=== PATIENT | female | born 1960 ===

== ENCOUNTER 2017-03-31 08:02 | Emergency (ER) | payer OTHER ==
[2017-03-31 08:02] VITALS: BMI 26.2
[2017-03-31 08:23] VITALS: TEMP 98.7
[2017-03-31] MEDS ORDERED: Naproxen 550 mg Tab PO STA (08:36)
--- NOTE | 2017-03-31 08:37 | ED PDOC ---
Arrival/HPI - General Chief Complaint: Lower Extremity Problem/Injury Time Seen by Provider: 03/31/17 08:30 Historian: Patient - History of Present Illness Narrative History of Present Illness (Text): 03/31/17 08:36 A 56 year old female, who denies any past medical history, presents to the emergency department complaining of right foot pain since this morning. She denies any recent trauma or injuries. Patient denies any fever, chills, nausea, vomiting, abdominal pain, chest pain, shortness of breath or any other complaints. PMD: Dr. Cruz Patterson Time/Duration: Prior to Arrival Symptom Course: Unchanged Quality: Other Context: Home Past Medical History - Provider Review Nursing Documentation Reviewed: Yes - Tetanus Immunization Tetanus Immunization: Unknown - Cardiac Hx Cardiac Disorders: No Hx Pacemaker: No - Neurological Hx Paralysis: No - Hematological/Oncological Hx Blood Transfusions: No - Musculoskeletal/Rheumatological Hx Musculoskeletal Disorders: No - Psychiatric Hx Emotional Abuse: No Hx Physical Abuse: No Hx Substance Use: No - Surgical History Hx Section: Yes Other/Comment: foot surgery - Anesthesia Hx Anesthesia Reactions: No Hx Malignant Hyperthermia: No - Suicidal Assessment Feels Threatened In Home Enviroment: No Family/Social History - Physician Review Nursing Documentation Reviewed: Yes Family/Social History: No Known Family HX Smoking Status: Never Smoked Hx Alcohol Use: No Hx Substance Use: No Allergies/Home Meds Allergies/Adverse Reactions: Allergies No Known Allergies Allergy (Verified 03/31/17 08:23) Review of Systems - Physician Review All systems were reviewed & negative as marked: Yes - Review of Systems Constitutional: absent: Fevers, Night Sweats Respiratory: absent: SOB Cardiovascular: absent: Chest Pain Gastrointestinal: absent: Abdominal Pain, Nausea, Vomiting Musculoskeletal: Other (right foot pain) Physical Exam Vital Signs Reviewed: Yes Vital Signs Temp Pulse Resp BP Pulse Ox 03/31/17 11:10 78 18 147/77 100 03/31/17 08:21 98.7 F 80 16 164/104 H 98 Temperature: Afebrile Blood Pressure: Hypertensive Pulse: Regular Respiratory Rate: Normal Appearance: Positive for: Well-Appearing, Non-Toxic, Comfortable Pain Distress: None Mental Status: Positive for: Alert and Oriented X 3 - Systems Exam Head: Present: Atraumatic, Normocephalic Pupils: Present: PERRL Extroacular Muscles: Present: EOMI Conjunctiva: Present: Normal Lower Extremity: Present: NORMAL PULSES, Normal ROM, Tenderness (Mild right 1st digit tenderness), Neurovascularly Intact. No: Edema, CALF TENDERNESS, Swelling , Erythema, Deformity, Temperature Abnormalties Neurological: Present: GCS=15, CN II-XII Intact, Speech Normal Skin: Present: Warm, Dry, Normal Color. No: Rashes Psychiatric: Present: Alert, Oriented x 3, Normal Insight, Normal Concentration Medical Decision Making ED Course and Treatment: 03/31/17 08:36 Impression: A 56 year old female with right foot pain. Plan: -- Right foot xray -- Naproxen -- Reassess and disposition Progress Notes: Report Date : 03/31/2017 09:35:04 PROCEDURE: Right Foot Radiographs. Dictator : Juan Carlos Souza MD IMPRESSION: Small plantar calcaneal spur. Otherwise unremarkable. 03/31/17 09:40 I have discussed the results and plan with the patient, who expresses understanding. Patient in agreement with plan to be discharged home. Patient is stable for discharge. Patient was instructed to follow up with physician or return if symptoms worsen or new concerning symptoms arise. 03/31/17 10:17 Patient evaluated by corporate real estate specialist Dr. Shaffer and team, who cleared patient for discharge. 03/31/17 11:42 - Lab Interpretations I have reviewed the lab results: Yes - RAD Interpretation Radiology Orders: 03/31/17 08:36 FOOT RIGHT 3 VIEWS ROUTINE [RAD] Stat - Medication Orders Current Medication Orders: Discontinued Medications Naproxen (Anaprox Ds) 550 mg PO STAT STA Stop: 03/31/17 08:37 Last Admin: 03/31/17 08:51 Dose: 550 mg - Scribe Statement The provider has reviewed the documentation as recorded by the Apoorvaibjun Youngblood Provider Scribe Attestation: All medical record entries made by the Scribjun were at my direction and personally dictated by me. I have reviewed the chart and agree that the record accurately reflects my personal performance of the history, physical exam, medical decision making, and the department course for this patient. I have also personally directed, reviewed, and agree with the discharge instructions and disposition. Disposition/Present on Arrival - Present on Arrival Any Indicators Present on Arrival: No History of DVT/PE: No History of Uncontrolled Diabetes: No Urinary Catheter: No History of Decub. Ulcer: No History Surgical Site Infection Following: None - Disposition Have Diagnosis and Disposition been Completed?: Yes Diagnosis: Foot pain Disposition: HOME/ ROUTINE Disposition Time: 09:40 Condition: STABLE Discharge Instructions (ExitCare): Foot Sprain (ED), Arthralgia (ED) Additional Instructions: please follow up with your doctor. return to er with worsening symptoms or concerns. Prescriptions: Naproxen [Naprosyn] 500 mg PO BID PRN #14 tablet PRN Reason: Pain, Mild (1-3) Referrals: Priscila Torre DPM [Staff Provider] - Follow up with primary Forms: [employer] (Chinese)
--- NOTE | 2017-03-31 09:36 | RAD ---
PROCEDURE: Right Foot Radiographs. HISTORY: foot pain COMPARISON: 01/26/2015 FINDINGS: BONES: No fracture. Small plantar calcaneal spur. No osseous erosion or periosteal reaction. JOINTS: Normal. SOFT TISSUES: Normal. OTHER FINDINGS: None. IMPRESSION: Small plantar calcaneal spur. Otherwise unremarkable.
[2017-03-31 11:10] VITALS: BP 147/77; PULSE 78; RESP 18; O2SAT 100
== END 2017-03-31 11:15 | disposition home or self-care (01) ==
LOC: ED 08:02
DX: M79.671 Pain in right foot (principal)

== ENCOUNTER 2018-06-11 16:51 | Emergency (ER) | payer OTHER ==
[2018-06-11 17:09] VITALS: RESP 18; BMI 27.0
--- NOTE | 2018-06-11 17:27 | ED PDOC ---
Arrival/HPI - General Chief Complaint: Shortness Of Breath Time Seen by Provider: 06/11/18 17:19 Historian: Patient - History of Present Illness Narrative History of Present Illness (Text): 06/11/18 17:24 58 year old female, whose past medical history includes asthma, who presents to the emergency department complaining of shortness of breath and wheezing x 1 day. Patient states she was cleaning her son's pets, which may have triggered the episode. Patient denies any fever, chills, chest pain, shortness of breath, nausea, vomiting, diarrhea, back pain, neck pain, headache, dizziness, or any other complaints. Time/Duration: Other (1 day) Symptom Onset: Gradual Symptom Course: Unchanged Activities at Onset: Light Context: Home Past Medical History - Provider Review Nursing Documentation Reviewed: Yes - Tetanus Immunization Tetanus Immunization: Unknown - Reproductive Menopause: Yes - Cardiac Hx Cardiac Disorders: No - Pulmonary Hx Respiratory Disorders: Yes Hx Asthma: Yes - Neurological Hx Neurological Disorder: No - HEENT Hx HEENT Disorder: Yes (SEASONAL ALLERGIES) - Renal Hx Renal Disorder: No - Endocrine/Metabolic Hx Endocrine Disorders: No - Hematological/Oncological Hx Blood Disorders: No - Integumentary Hx Dermatological Disorder: No - Musculoskeletal/Rheumatological Hx Musculoskeletal Disorders: No - Gastrointestinal Hx Gastrointestinal Disorders: No - Genitourinary/Gynecological Hx Genitourinary Disorders: No - Psychiatric Hx Psychophysiologic Disorder: No Hx Substance Use: No - Surgical History Hx Section: Yes (X3) Other/Comment: REMOVAL FB FOOT - Anesthesia Hx Anesthesia: Yes Hx Anesthesia Reactions: No Hx Malignant Hyperthermia: No - Suicidal Assessment Feels Threatened In Home Enviroment: No Family/Social History - Physician Review Nursing Documentation Reviewed: Yes Family/Social History: Unknown Family HX Smoking Status: Never Smoked Hx Alcohol Use: No Hx Substance Use: No Allergies/Home Meds Allergies/Adverse Reactions: Allergies No Known Allergies Allergy (Verified 06/11/18 17:07) Home Medications: Home Meds Medication Instructions Recorded Confirmed Montelukast Sodium [Singulair] 10 mg PO DAILY PRN 02/28/18 06/11/18 Levalbuterol Tartrate [Xopenex Hfa] 2 puff NEB Q6 PRN 06/11/18 06/11/18 Review of Systems - Physician Review All systems were reviewed & negative as marked: Yes - Review of Systems Constitutional: Normal Eyes: Normal ENT: Normal Respiratory: SOB, Wheezing. absent: Cough Cardiovascular: Normal. absent: Chest Pain Gastrointestinal: Normal. absent: Abdominal Pain Genitourinary Female: Normal. absent: Dysuria, Frequency Musculoskeletal: Normal. absent: Back Pain, Neck Pain Skin: Normal. absent: Rash Neurological: Normal. absent: Headache, Dizziness Endocrine: Normal Hemo/Lymphatic: Normal Psychiatric: Normal Physical Exam Vital Signs Reviewed: Yes Vital Signs Temp Pulse Resp BP Pulse Ox 06/11/18 17:02 98.5 F 110 H 18 156/90 H 98 Temperature: Afebrile Blood Pressure: Hypertensive Pulse: Tachycardic Respiratory Rate: Normal Appearance: Positive for: Well-Appearing, Non-Toxic, Comfortable Pain Distress: None Mental Status: Positive for: Alert and Oriented X 3 - Systems Exam Head: Present: Atraumatic, Normocephalic Pupils: Present: PERRL Extroacular Muscles: Present: EOMI Conjunctiva: Present: Normal Mouth: Present: Moist Mucous Membranes Neck: Present: Normal Range of Motion Respiratory/Chest: Present: Wheezes (wheezing bilateral). No: Respiratory Distress, Accessory Muscle Use Cardiovascular: Present: Regular Rate and Rhythm, Normal S1, S2. No: Murmurs Abdomen: No: Tenderness, Distention, Peritoneal Signs Back: Present: Normal Inspection Upper Extremity: Present: Normal Inspection. No: Cyanosis, Edema Lower Extremity: Present: Normal Inspection. No: Edema Neurological: Present: GCS=15, CN II-XII Intact, Speech Normal Skin: Present: Warm, Dry, Normal Color. No: Rashes Psychiatric: Present: Alert, Oriented x 3, Normal Insight, Normal Concentration Medical Decision Making ED Course and Treatment: 06/11/18 17:27 Impression: 58 year old female presents to the Emergency department complaining of shortness of breath and wheezing. Plan: -- Labs -- Chest X-ray -- Duoneb -- SOLU-Medrol -- Flu -- Urinalysis -- HCG, Qualitative -- Reassess and disposition Progress Notes: 06/12/18 10:59 labs cxr neg. wheeizng improving. pt observed. labs neg. pt states feels "much better" adivse outpt fu and return precautions - RAD Interpretation Radiology Orders: 06/11/18 17:22 CHEST PORTABLE [RAD] Stat - Medication Orders Current Medication Orders: Albuterol/Ipratropium (Duoneb 3 Mg/0.5 Mg (3 Ml) Ud) 3 ml IH Q15M MAYRA Stop: 06/11/18 18:01 Methylprednisolone (Solu-Medrol) 125 mg IVP STAT STA Stop: 06/11/18 17:23 - Scribe Statement The provider has reviewed the documentation as recorded by the Apoorvaibjun Noe All medical record entries made by the Scribjun were at my direction and personally dictated by me. I have reviewed the chart and agree that the record accurately reflects my personal performance of the history, physical exam, medical decision making, and the department course for this patient. I have also personally directed, reviewed, and agree with the discharge instructions and disposition. Disposition/Present on Arrival - Present on Arrival Any Indicators Present on Arrival: No History of DVT/PE: No History of Uncontrolled Diabetes: No Urinary Catheter: No History of Decub. Ulcer: No History Surgical Site Infection Following: None - Disposition Have Diagnosis and Disposition been Completed?: Yes Diagnosis: Asthma Disposition: HOME/ ROUTINE Disposition Time: 19:00 Condition: STABLE Discharge Instructions (ExitCare): Asthma in Adults Additional Instructions: return to er with worsening symptoms or concerns. Prescriptions: Albuterol 0.083% [Albuterol 0.083% Inhal Angelina (2.5 mg/3 ml) UD] 2.5 mg IH Q4 PRN #20 neb PRN Reason: Wheezing Mask, Face [Nebulizer Aerosol Mask Adult] 1 dev XX PRN PRN #1 dev PRN Reason: Wheezing RX: Nebulizer [Aeroeclipse II] 1 each MC Q4 PRN #1 each PRN Reason: Wheezing RX: Prednisone 50 mg PO DAILY #5 tablet Forms: [employer] (French)
[2018-06-11] MEDS: Albuterol-Ipratrop 3 mg / 0.5 (3 ml) UD IH SCH ×2 (17:30→17:45)
[2018-06-11 18:08] LABS: BASO # 0.04 K/mm3 (0.0-2.0); BASO % 0.5 % (0.0-3.0); EOS % 12.3 % (1.5-5.0); GRAN # 4.36 (1.4-6.5); GRAN % 54.3 % (50.0-68.0); HEMOGLOBIN 14.5 g/dL (12.0-16.0); LYMPH # 1.7 (1.2-3.4); LYMPH % 21.5 % (22.0-35.0); MEAN CELL VOLUME 92.6 fl (80.0-105.0); MEAN CORPUSCULAR HEMOGLOBIN 31.6 pg (25.0-35.0); MEAN CORPUSCULAR HGB CONC 34.1 g/dl (31.0-37.0); MEAN PLATELET VOLUME 10.4 fl (7.0-11.0); MONO # 0.9 (0.1-0.6); MONO % 11.4 % (1.0-6.0); RBC 4.59 10^6/uL (3.5-6.1); RED CELL DISTRIBUTION WIDTH 13.2 % (11.5-14.5)
[2018-06-11 18:10] LABS: ALB/GLOB RATIO 1.2 (1.1-1.8); ALBUMIN 4.7 g/dL (3.0-4.8); BLOOD UREA NITROGEN 13 mg/dL (7-21); CALCIUM 9.5 mg/dL (8.4-10.5); GFR NON-AFRICAN AMERICAN > 60
[2018-06-11 18:19] LABS: ALT/SGPT 47 U/L (7-56); AST/SGOT 50 U/L (14-36)
[2018-06-11 18:31] LABS: INR 1.03; PROTHROMBIN TIME 11.7 SECONDS (9.4-12.5)
[2018-06-11 19:19] VITALS: BP 145/87; PULSE 109; TEMP 98.9; O2SAT 100
--- NOTE | 2018-06-12 08:50 | RAD ---
Date of service: 06/11/2018 HISTORY: sob COMPARISON: 12/28/2017 FINDINGS: LUNGS: No active pulmonary disease. PLEURA: No significant pleural effusion identified, no pneumothorax apparent. CARDIOVASCULAR: No aortic atherosclerotic calcification present. Normal cardiac size. No pulmonary vascular congestion. OSSEOUS STRUCTURES: No significant abnormalities. VISUALIZED UPPER ABDOMEN: Normal. OTHER FINDINGS: None. IMPRESSION: No active disease.
== END 2018-06-11 19:18 | disposition home or self-care (01) ==
LOC: ED 16:51
DX: J45.909 Unspecified asthma, uncomplicated (principal)
CPT/HCPCS: 71045; 80053; 85025; 85610; 85730; 87804; 96374; 99283; J2930